=== PATIENT | female | born 1985 | race Caucasian/White ===

== ENCOUNTER 2020-04-21 09:10 | Emergency (ER) | payer SELFPAY ==
--- NOTE | 2020-04-21 09:13 | ED.GENADULT ---
HPI - General Adult General Chief complaint: Nausea/Vomiting/Diarrhea Stated complaint: ulcer causing nausea Time Seen by Provider: 04/21/20 09:13 Source: patient Mode of arrival: ambulatory Limitations: no limitations Review of Systems Review of Systems: Narrative: CONSTITUTIONAL: Denies fever, chills, or sweats. EYES: Denies visual changes, redness, or discharge. ENT: Denies rhinorrhea, congestion, sore throat, or otalgia. CARDIOVASCULAR: Denies chest pain, palpitations, or edema. RESPIRATORY: Denies cough or dyspnea. GASTROINTESTINAL: Denies abdominal pain, nausea, vomiting, or diarrhea. GENITOURINARY: Denies dysuria or hematuria. SKIN: Denies rash or itching. MUSCULOSKELETAL: Denies back pain, joint pain, or myalgia. NEUROLOGIC: Denies headache, numbness, or weakness. PSYCHIATRIC: Denies anxiety or depression. PMFSH Comments At the time of my signature I agree with nursing past medical history, surgical, social, and family history. There is no relevant family history pertinent to the presenting complaint. Exam Narrative: Exam Narrative: GENERAL: Well-appearing, well-nourished, and in no acute distress. HEAD: Normocephalic, atraumatic. EYES: PERRLA and EOMI. ENT: Nares clear, no rhinorrhea or epistaxis. Mucous membranes moist. NECK: Supple. No lymphadenopathy CHEST: Clear to auscultation. No respiratory distress. HEART: Regular rate and rhythm. No murmur heard. Normal peripheral pulses. ABDOMEN: Soft, nontender, nondistended, normal active bowel sounds. EXTREMITIES: Normal range of motion. No edema. SKIN: Warm, dry, no rash. NEURO: No focal deficits. Alert and oriented x3. Course Vital Signs Vital signs: Vital signs reviewed. Medical Decision Making Differential Diagnosis Differential Diagnosis: Differential diagnosis: Appendicitis, ovarian torsion, gallbladder disease, ovarian torsion, pancreatitis, lower lobe pneumonia,AAA, AMI or ACS, DKA, diverticulitis. Critical Care Time Critical Care Time Critical Care Time: No
[2020-04-21 09:16] VITALS: BP 116/77; PULSE 96; RESP 18; TEMP 36.3; O2SAT 100
== END 2020-04-21 09:25 | disposition left against medical advice (07) ==
LOC: EXPBETH 09:13
PROVIDERS: Emergency Provider Nurse Practitioner Family
DX: Z53.21 Procedure and treatment not carried out due to patient leaving prior to being seen by health care provider (principal)
CPT/HCPCS: 99199

== ENCOUNTER 2022-06-01 08:25 | Emergency (ER) | payer MEDICAID, SELFPAY ==
--- NOTE | ~2022-06-01 | US_ITS ---
EXAMINATION: US OB <=14 wk fetus w TV DATE: 06/01/2022 09:37 INDICATION: Vaginal bleeding during first trimester TECHNIQUE: Real-time pelvic transabdominal and transvaginal ultrasound was performed. COMPARISON: None. FINDINGS: The uterus measures 7.4 x 4.5 x 5.7 cm. There is an intrauterine gestational sac. A yolk s ac is identified. heart motion is identified measuring 123 beats per minute (bpm) by M-mode Dop pler. The crown rump length measures 8 mm, which correlates with an estimated gestational age o f 6 weeks and 5 day(s) (+/-) 4 day(s). The right ovary measures 2.1 x 1.4 x 2.2 cm. The left ovary measures 2.8 x 1.9 x 2 cm. There is keiko l vascular flow in the ovaries. There is no free fluid in the pelvis. IMPRESSION: 1. Live intrauterine with an estimated gestational age of 6 weeks and 5 day(s) (+/-) 4 day( s) and an estimated delivery date of 01/20/2023. Reviewed, dictated and finalized at location A. IMPRESSION: 1. Live intrauterine with an estimated gestational age of 6 weeks and 5 day(s) (+/-) 4 day(s) and an estimated delivery date of 01/20/2023.
[2022-06-01 08:30] VITALS: BP 124/75; PULSE 74; RESP 16; TEMP 37.2; O2SAT 100
[2022-06-01 10:15] LABS: Basophils Absolute Auto 0.1 K/mm3 (0.0-0.1); Eosinophils Absolute Auto 0.1 K/mm3 (0-0.3); Eosinophils Percent Auto 1.6 % (0-4.4); Hematocrit 41.6 % (37.0-47.0); Hemoglobin 13.9 g/dL (12.0-15.0); Immature Granulocyte Absolute 0.03 K/mm3 (0.00-0.031); Immature Granulocyte Percent A 0.4 % (0-0.5); Lymphocytes Absolute Auto 2.04 K/mm3 (0.9-3.2); Lymphocytes Percent Auto 29.2 % (18.3-44.2); Mean Corpuscular HGB Conc 33.4 g/dl (32-36); Mean Corpuscular Volume 95.6 fl (80-100); Mean Platelet Volume 10.1 fl (7.4-10.4); Monocytes Absolute Auto 0.5 K/mm3 (0.1-0.6); Monocytes Percent Auto 7.7 % (2.6-8.5); Neutrophils Absolute Auto 4.2 K/mm3 (1.3-6.7); Neutrophils Percent Auto 60.1 % (45.5-73.1); Platelet Count Result 241 k/mm3 (150-375); Red Blood Count 4.35 M/mm3 (4.2-5.4)
[2022-06-01 10:39] LABS: Anion Gap 12 mmol/L (8-16); Blood Urea Nitrogen 9 mg/dL (7-17); Calcium 9.2 mg/dL (8.4-10.2); Carbon Dioxide 24 mmol/L (22-30); Chloride 101 mmol/L (98-107); Estimated CRCL calculation 100 ml/min; Estimated Glomerular Filt Rate > 60; Glucose 84 mg/dL (65-110); Sodium 137 mmol/L (137-145)
[2022-06-01] MEDS: RHO(D) IMMUNE GLOBULIN 300 MCG/2 ML SYRINGE IM (11:37)
--- NOTE | 2022-06-01 12:05 | ED.GENADULT ---
HPI - General Adult General Chief complaint: Vaginal Bleeding Stated complaint: preg with blood and cramping Time Seen by Provider: 06/01/22 08:31 History of Present Illness HPI narrative: Patient is a 37-year-old female who presents ER with abdominal bleeding and cramping. Patient is known to be . She was gone to the clinic to confirm . She has not had an ultrasound done. No fevers or chills or sweats. Bleeding began 3 days ago and only occurred for 1 night. She is cramping now. This is her first . Related Data Allergies Allergy/AdvReac Type Severity Reaction Status Date / Time No Known Allergies Allergy Verified 06/01/22 08:35 Review of Systems Review of Systems: All systems reviewed & are unremarkable except as noted in HPI and below Constitutional: Constitutional: Denies chills and Denies fever(s) Cardiovascular: Cardiovascular: Denies chest pain, Denies radiating jaw, neck or arm pain and Denies slow heart rate Respiratory: Respiratory: Denies cough Gastrointestinal: Gastrointestinal: Denies abdominal pain, Denies nausea and Denies vomiting Genitourinary: Genitourinary: Reports abnormal vaginal bleeding, Denies hematuria, Denies nocturia, Denies dysuria and Denies vaginal discharge [facility] Past Medical History Medical History (Updated 06/01/22 @ 12:10 by Cameron Ingram MD) Healthy female adult Surgical History Surgical History (Updated 06/01/22 @ 12:06 by Cameron Ingram MD) No pertinent past surgical history Social History Social History (Updated 06/01/22 @ 12:06 by Cameron Ingram MD) Smoking status: Former smoker Exam Narrative: GENERAL: Well-appearing, well-nourished, and in no acute distress. HEAD: Normocephalic, atraumatic. ENT: Mucous membranes moist. CHEST: Clear to auscultation. No respiratory distress. HEART: Regular rate and rhythm. Normal peripheral pulses. ABDOMEN: Soft, nontender, nondistended. PELVIC: Deferred. EXTREMITIES: Normal range of motion. No edema. NEURO: Alert and oriented x3. PSYCH: Normal mood and affect. Course Course Emergency Course: Patient informed of results. Not currently bleeding. RhoGAM administered. We will give OB follow-up. Vital Signs Vital signs: Vital Signs Temperature 98.9 F 06/01/22 08:30 Pulse Rate 74 06/01/22 08:30 Respiratory Rate 16 06/01/22 08:30 Blood Pressure 124/75 06/01/22 08:30 Pulse Oximetry 100 06/01/22 08:30 Oxygen Delivery Room Air 06/01/22 08:30 Temperature 98.9 F 06/01/22 08:30 Pulse Rate 74 06/01/22 08:30 Respiratory Rate 16 06/01/22 08:30 Blood Pressure 124/75 06/01/22 08:30 Pulse Oximetry 100 06/01/22 08:30 Oxygen Delivery Room Air 06/01/22 08:30 Medical Decision Making Vital Signs Vital Signs: Vital Signs Temperature 98.9 F 06/01/22 08:30 Pulse Rate 74 06/01/22 08:30 Respiratory Rate 16 06/01/22 08:30 Blood Pressure 124/75 06/01/22 08:30 Pulse Oximetry 100 06/01/22 08:30 Oxygen Delivery Room Air 06/01/22 08:30 Temperature 98.9 F 06/01/22 08:30 Pulse Rate 74 06/01/22 08:30 Respiratory Rate 16 06/01/22 08:30 Blood Pressure 124/75 06/01/22 08:30 Pulse Oximetry [facility] 06/01/22 08:30 Oxygen Delivery Room Air 06/01/22 08:30 Lab Data Result diagrams: 06/01/22 10:04 06/01/22 10:04 Labs: Lab Results 06/01/22 06/01/22 06/01/22 Range/Units 10:04 10:04 10:04 WBC 7.0 (4.5-10.0) K/mm3 RBC 4.35 (4.2-5.4) M/mm3 Hgb 13.9 (12.0-15.0) g/dL Hct 41.6 (37.0-47.0) % MCV 95.6 (80-100) fl MCH 32.0 (26-34) pg MCHC 33.4 (32-36) g/dl RDW 12.0 (11.5-14.5) % Plt Count 241 (150-375) k/mm3 MPV 10.1 (7.4-10.4) fl Immature Gran % (Auto) 0.4 (0-0.5) % Neut % (Auto) 60.1 (45.5-73.1) % Lymph % (Auto) 29.2 (18.3-44.2) % [place] % (Auto) 7.7 (2.6-8.5) % Eos % (Auto) 1.6 (0-4.4) % Baso % (Auto) 1.0
== END 2022-06-01 12:17 | disposition home or self-care (01) ==
PROVIDERS: Emergency Provider Emergency Medicine
DX: O20.9 Hemorrhage in early pregnancy, unspecified (principal); Z87.891 Personal history of nicotine dependence; Z3A.01 Less than 8 weeks gestation of pregnancy
CPT/HCPCS: 36415; 76801; 76817; 80048; 84702; 85025; 85461; 90384; 96372; 99284; J2790